=== PATIENT | female | born 2000 | race Caucasian/White ===

== ENCOUNTER 2021-05-24 18:12 | Emergency (ER) | payer OTHER ==
[~2021-05-24] VITALS: Ht 162.6 cm; Wt 86.0 kg
[2021-05-24 23:27] LABS: BASOPHILS % 0.5 % (0.0-2.0); EOSINOPHILS % 1.1 % (0.0-5.0); HEMATOCRIT. 38.8 % (36.0-48.0); HEMOGLOBIN. 12.9 g/dL (12.0-16.0); LYMPHOCYTES % 30.8 % (20.0-50.0); MEAN CORPUSCULAR HEMOGLOBIN 28.1 pg (28.0-32.0); MEAN CORPUSCULAR VOLUME 84.1 fL (81.0-99.0); MONOCYTES % 4.4 % (2.0-8.0); NEUTROPHILS % 63.2 % (40.0-76.0); PLATELET 428 x1000/uL (130-400); RED BLOOD CELL COUNT 4.61 mill/uL (4.2-5.4); RED CELL DISTRIBUTION WIDTH 15.1 % (11.6-14.6)
[2021-05-24 23:29] LABS: CHLORIDE 104 mEq/L (98-107)
[2021-05-24 23:32] LABS: HCG SCREEN NEGATIVE
[2021-05-24 23:42] LABS: B-HCG QUANTITATIVE < 1 mIU/mL (<3)
[2021-05-25] MEDS ORDERED: IBUP-2028 MT (00:15)
[2021-05-25] MEDS ORDERED: IBUPROFEN 600MG TABLET PO ONE (00:15)
[2021-05-25 00:23] VITALS: BP 152/80
== END 2021-05-25 00:27 | disposition home or self-care (01) ==
LOC: ER 18:12
DX: N93.8 Other specified abnormal uterine and vaginal bleeding (principal); N93.9 Abnormal uterine and vaginal bleeding, unspecified
CPT/HCPCS: 36415; 76801; 76817; 80053; 81025; 84702; 84703; 85025; 86850; 86900; 86901; 99284; Z7610